=== PATIENT | female | born 1950 | race Caucasian/White ===

== ENCOUNTER → 2016-08-08 | Outpatient (CLI) | payer OTHER | LOC: FIMAGING 10:39 | PROVIDERS: ATTEND Internal Medicine | DX: Z12.31 Encounter for screening mammogram for malignant neoplasm of breast (principal) | CPT/HCPCS: G0202 ==

== ENCOUNTER → 2017-08-13 | Outpatient (CLI) | payer OTHER | LOC: FIMAGING 13:24 | PROVIDERS: ATTEND Internal Medicine | DX: Z12.31 Encounter for screening mammogram for malignant neoplasm of breast (principal) ==

== ENCOUNTER → 2018-08-14 | Outpatient (CLI) | payer OTHER | LOC: FIMAGING 08:48 ==